=== PATIENT | male | born 1975 | race Two or more races ===

== ENCOUNTER 2021-03-31 04:43 | Emergency (ER) | payer SELFPAY ==
[~2021-03-31] VITALS: Ht 180.3 cm; Wt 145.5 kg
--- NOTE | 2021-03-31 05:27 | PHYS DOC ---
Past Medical History Past Medical History: Diabetes-Type II, GERD, Hypertension, Other Additional Past Medical Histor: ACID REFLUX, USES CPAP AT HOME (ARYAN REAGAN DO) Past Surgical History: Other Additional Past Surgical Histo: TWISTED TESTICLE CHILD, AND KELOID REMOVED (ARYAN REAGAN DO) Smoking Status: Never Smoker Alcohol Use: Occasionally (ARYAN REAGAN DO) General Adult EDM: Chief Complaint: ABDOMINAL PAIN HPI: HPI: Patient is a 45 year old male with history of GERD and hypertension presents with the chief complaint of epigastric discomfort. Onset of discomfort on wednesday. Pain is epigastric with radiation to back. Patient has associated diarrhea and nausea. Aggravating factors include alcohol and spicy foods. Patient with previous similar symptoms. Was Rx sulcrafate but ran out approximately 1 month ago. (ARYAN REAGAN DO) Review of Systems: Review of Systems: Review of systems: Constitutional symptoms- No fever, no chills. Eyes- No Discharge, No Visual Loss Respiratory symptoms- No shortness of breath, No wheezing, No Dyspnea on Exertion Cardiovascular Systems; No chest pain, No Palpitations, No syncope Gastrointestinal symptoms: Positive abdominal pain, Positive nausea, no vomiting Positive diarrhea. Genitourinary symptoms: No dysuria. Musculoskeletal symptoms: No back pain No extremity pain. NEUROLOGICAL Symptoms: No headache, no generalized weakness; No focal Weakness (ARYAN REAGAN DO) Heart Score: C/O Chest Pain: Yes HEART Score for Chest Pain: HEART Score for Chest Pain Response (Comments) Value History Slighlty/Non-Suspicious 0 ECG Normal 0 Age >45 - < 65 1 Total 1 Risk Factors: Risk Factors: DM, Current or recent (<one month) smoker, HTN, HLP, family history of CAD, obesity. Risk Scores: Score 0 - 3: 2.5% MACE over next 6 weeks - Discharge Home Score 4 - 6: 20.3% MACE over next 6 weeks - Admit for Clinical Observation Score 7 - 10: 72.7% MACE over next 6 weeks - Early Invasive Strategies (ARYAN REAGAN DO) Allergies: Allergies: Allergies Coded Allergies Type Severity Reaction Last Updated Verified No Known Drug Allergies 03/31/21 No (ARYAN REAGAN DO) Physical Exam: PE: Constitutional: Well developed, well nourished, no acute distress, non-toxic appearance. [] HENT: Normocephalic, atraumatic, bilateral external ears normal, oropharynx moist, no oral exudates, nose normal. [] Eyes: PERRLA, EOMI, conjunctiva normal, no discharge. [] Neck: Normal range of motion, no tenderness, supple, no stridor. [] Cardiovascular:Heart rate regular rhythm, no murmur [] Lungs & Thorax: Bilateral breath sounds clear to auscultation [] Abdomen: Bowel sounds normal, soft, no tenderness, no masses, no pulsatile masses. [] Skin: Warm, dry, no erythema, no rash. [] Back: No tenderness, no CVA tenderness. [] Extremities: No tenderness, no cyanosis, no clubbing, ROM intact, no edema. [] Neurologic: Alert and oriented X 3, normal motor function, normal sensory function, no focal deficits noted. [] Psychologic: Affect normal, judgement normal, mood normal. [] (ARYAN REAGAN DO) Current Patient Data: Vital Signs: Vital Signs Date Time Temp Pulse Resp B/P (MAP) Pulse Ox O2 Delivery O2 Flow Rate FiO2 03/31/21 04:45 98.1 94 16 125/60 (81) 94 Room Air 98.1 (ARYAN REAGAN DO) EKG: EKG: [] EKG performed at 523 heart rate [address] elevation no ST depression no acute OR (ARYAN REAGAN DO) Radiology/Procedures: Radiology/Procedures: [] Impression: XR CHEST 1V Clinical History: Reason: epigastric discomfort / Spl. Instructions: / History: Technique: AP view of the chest was obtained at 03/31/2021 5:31 AM. Comparison: None. Findings: The heart is normal size. The pulmonary vessels appear normal. There is mild linear opacities in the lower lungs. The pleural margins are clear. Impression: Mild bilateral infiltrates likely discoid atelectasis. (ARYAN REAGAN DO) Radiology/Procedures: IMAGING REPORT Signed PATIENT: DERIK MAYES ACCOUNT: [id number] : 1975 LOCATION: ER AGE: 45 SEX: M EXAM STATUS: PRE ER ORD. PHYSICIAN: ARYAN REAGAN DO REASON: abd pain elevated lipase, OMNI 300, 75 ML IV PROCEDURE: CT ABD PELV W/ IV CONTRST ONLY CT OF THE ABDOMEN AND PELVIS WITH IV CONTRAST. History: Reason: abd pain elevated lipase Comparison:None. Procedure: Contiguous axial images of the abdomen and pelvis were performed after the administration of 75 cc of Omni 300 IV contrast. Oral contrast: No. Findings: A few patchy opacities in the lung bases are likely discoid atelectasis. The gallbladder appears normal. The appendix is normal. There is fat-containing inguinal canal hernias. Liver: Unremarkable Spleen: Unremarkable Pancreas: Homogeneous however there is mild hazy opacity inferior to the head of the pancreas. Adrenal Glands: Unremarkable Kidneys: There is a tiny nonobstructive stone in each renal pelvis. There is a 5 mm stone at left UPJ without significant hydronephrosis. There is no mass or lymphadenopathy. There is no free air. There is no free fluid. The urinary bladder is mostly collapsed and not well evaluated. Impression: 1. Mild mesenteric inflammation just inferior to the head of the pancreas is likely secondary to pancreatitis. 2. Small stone left UPJ without significant hydronephrosis. Clinical correlation is suggested. End Impression PQRS Compliance Statement: One or more of the following individualized dose reduction techniques were utilized for this examination: 1. Automated exposure control 2. Adjustment of the mA and/or kV according to patient size 3. Use of iterative reconstruction technique Electronically signed by: Cynthia Tse III, MD (03/31/2021 6:17 AM) [facility] DICTATED and SIGNED BY: CYNTHIA TSE III, MD DATE: 03/31/21 [id number] Impression: CT Severity Index score 1 (mild) < 3 via ransom criteria (possibly score of 1 -no LDH drawn) BISAP 0 (EVERETT VILLANUEVA DO) Course & Med Decision Making: Course & Med Decision Making Pertinent Labs and Imaging studies reviewed. (See chart for details) [] (ARYAN REAGAN DO) Course & Med Decision Making Concern for mild, acute pancreatitis for the past 2 days. Patient reports he normally drinks tanvi daily, last drink was 2 days ago, reports 24 ounce beer. No prior history of pancreatitis. Reports PCP appointment in the past year with normal cholesterol. No history of biliary disease/gallstones. Patient reports pain is well tolerated with Advil that he took prior to ED arrival. Patient states he recently moved here from [place] and has no pcp. Is requesting discharge home. Dates pain is well tolerated and is tolerating oral intake. No active nausea or vomiting. Patient in no acute distress, hemodynamically stable, afebrile with no signs of sepsis. Will discharge home with strict ED return precautions were given for worse abdominal pain, dehydration, intractable nausea or vomiting, fever, confusion or difficulties breathing. Encouraged urgent outpatient follow-up with PMD in 24 to 48 hours for reevaluation. Life- threatening processes were considered but are low suspicion at this time, given history, physical exam and ED workup. Pt was educated on all prescription medications and adverse effects. All patient's questions were answered and pt was stable at time of discharge. Life/limb-threatening differential includes but is not limited to, Silverio's a ngina, infection (periodontal or peritonsillar abscess, retropharyngeal abscess, Vincents angina, ANUG, pharyngeal/bus monitor/buccal space infection), trauma or fracture, dental fracture/subluxation/avulsion, dental bleeding or hemorrhage/DIC, pulpitis, alveolar osteitis or neoplasm. I spoken with the patient and her caregivers. I explained the patient's condition, diagnoses and treatment plan based on the information available to me at this time. I have answered the patient and her caregiver's questions and addressed any concerns. The patient and her caregivers have a good understanding of patient's diagnosis, condition and treatment plan as can be expected at this point. Vital signs have been stable. Patient's condition is stable and appropriate for discharge from the emergency department. Patient will pursue further outpatient evaluation with primary care physician or other designated or consulting physician as outlined in the discharge instructions. The patient and/or caregivers are agreeable to this plan of care and follow-up instructions have been explained in detail. The patient and/or caregivers have received these instructions in written form and have expressed an understanding of the discharge instructions. The patient and/or caregivers are aware that any significant change of condition or worsening of symptoms should prompt immediate return to this or the closest emergency department or call to 911. (EVERETT VILLANUEVA DO) [place] Disclaimer: [place] Disclaimer: This electronic medical record was generated, in whole or in part, using a voice recognition dictation system. (ARYAN REAGAN DO) Departure Departure Impression: Primary Impression: Pancreatitis Additional Impression: Abdominal pain Disposition: HOME / SELF CARE / HOMELESS Condition: STABLE Referrals: ADRIAN DOOLEY MD Patient Instructions: Abdominal Migraine, Acute Pancreatitis, Diet for Gastroesophageal Reflux Disease, Child, [id number] Additional Instructions: Please abstain from any alcohol Follow-up with your primary care physician in 24 to 48 hours or follow-up with FOLLOW UP WITH FAMILY MEDICINE: [address], [address] [place] [address] EMERGENCY DEPARTMENT GENERAL DISCHARGE INSTRUCTIONS Thank you for coming to [facility] Emergency Department (ED) today and trusting us with you care. We trust that you had a positive experience in our Emergency Department. If you wish to speak to the department management, you may call the Director at [phone]. YOUR FOLLOW UP INSTRUCTIONS ARE FOLLOWS: 1. Do you have a private Doctor? If you do not have a private doctor, please ask for a resource list of physicians or clinics that may be able to assist you with follow up care. 2. The Emergency Physicain has interpreted your x-rays. The X-Ray specialist will also review them. If there is a change in the findings, you will be notified in 48 hours when at all possible. 3. A lab test or culture has been done, your results will be reviewed and you will be notified if you need a change in treatment. ADDITIONAL INSTRUCTIONS AND INFORMATION: 1. Your care today has been supervised by a physician who is specially trained in emergency care. Many problems require more than one evaluation for a complete diagnosis and treatment. We recommend that you schedule your follow up appointment as recommended to ensure complete treatment of you illness or injury. If you are unable to obtain follow up care and continue to have a problem, or if your condition worsens, we recommend that you return to the ED. 2. We are not able to safely determine your condition over the phone nor are we able to give sound medical advice over the phone. For these safety reasons, if you call for medical advice we will ask you to come to the ED for further evaluation. 3. If you have any questions regarding these discharge instructions please call the ED at [phone]. SAFETY INFORMATION: In the interest of safety, wellness, and injury prevention; we encourage you to wear your sealbelt, if you smoke; quite smoking, and we encourage family to use a protective helmet for bicycling and other sporting events that present an increased risk for head injury. IF YOUR SYMPTOMS WORSEN OR NEW SYMPTOMS DEVELOP, OR YOU HAVE CONCERNS ABOUT YOUR CONDITION; OR IF YOUR CONDITION WORSENS WHILE YOU ARE WAITING FOR YOUR FOLLOW UP APPOINTMENT; EITHER CONTACT YOUR PRIMARY CARE DOCTOR, THE PHYSICIAN WHOSE NAME AND NUMBER YOU WERE GIVEN, OR RETURN TO THE ED IMMEDIATELY. Scripts Pantoprazole Sodium (PROTONIX) 20 Mg Tablet. 1 TAB PO DAILY, #30 TAB 3 Refills Prov: ARYAN REAGAN I DO 03/31/21 Ondansetron Hcl (ZOFRAN) 4 Mg Tablet 1 TAB PO Q6HRS, #20 TAB Prov: ARYAN REAGAN I DO 03/31/21 Sucralfate (SUCRALFATE) 1 Gm Tablet 1 TAB PO TID, #90 TAB 11 Refills Prov: ARYAN REAGAN I DO 03/31/21 ARYAN REAGAN I DO March 31, 2021 05:27 [facility] March 31, 2021 06:53
[2021-03-31 05:29] LABS: BASO # 0.1 x10^3/uL (0.0-0.2); BASO % 1 % (0-3); EOS # 0.6 x10^3/uL (0.0-0.7); EOS % 6 % (0-3); HEMATOCRIT 42.3 % (39.0-53.0); HEMOGLOBIN 14.2 g/dL (13.0-17.5); LYMPH # 1.3 x10^3/uL (1.0-4.8); LYMPH % 13 % (24-48); MEAN CORPUSCULAR HEMOGLOBIN 31 pg (25-35); MEAN CORPUSCULAR HGB CONC 34 g/dL (31-37); MEAN CORPUSCULAR VOLUME 91 fL (79-100); MONO # 0.9 x10^3/uL (0.0-1.1); MONO % 10 % (0-9); NEUT # 7.1 x10^3/uL (1.8-7.7); NEUT % 71 % (31-73); PLATELET COUNT 178 x10^3/uL (140-400); RED BLOOD COUNT 4.63 x10^6/uL (4.30-5.70); RED CELL DISTRIBUTION WIDTH 13.8 % (11.5-14.5)
[2021-03-31 05:40] LABS: CALCIUM 9.7 mg/dL (8.5-10.1); CREATININE 1.1 mg/dL (0.7-1.3); GFR 72.4; POTASSIUM 3.6 mmol/L (3.5-5.1)
[2021-03-31 05:45] LABS: ALBUMIN 3.8 g/dL (3.4-5.0); ALBUMIN/GLOBULIN RATIO 1.1 (1.0-1.7); TOTAL BILIRUBIN 0.6 mg/dL (0.2-1.0); TOTAL PROTEIN 7.4 g/dL (6.4-8.2)
--- NOTE | 2021-03-31 05:45 | EKG ---
[facility] [address] [place] [address] Test Date: 2021-03-31 Test Time: 05:23:34 Pat Name: DERIK MAYES Department: Room: Gender: M Tester Regulator: : 1975 Requested By: ARYAN REAGAN Order Number: [id number] Reading MD: Measurements Intervals Imperial Rate: 89 P: 30 [place]: 142 QRS: -21 QRSD: 100 T: 13 QT: 346 QTc: 422 Interpretive Statements SINUS RHYTHM LEFTWARD AXIS QRS(T) CONTOUR ABNORMALITY CONSIDER ANTEROSEPTAL MYOCARDIAL DAMAGE POSSIBLY ABNORMAL ECG RI6.01 No previous ECG available for comparison
--- NOTE | 2021-03-31 05:45 | RAD ---
XR CHEST 1V Clinical History: Reason: epigastric discomfort / Spl. Instructions: / History: Technique: AP view of the chest was obtained at 03/31/2021 5:31 AM. Comparison: None. Findings: The heart is normal size. The pulmonary vessels appear normal. There is mild linear opacities in the lower lungs. The pleural margins are clear. Impression: Mild bilateral infiltrates likely discoid atelectasis. Electronically signed by: Albert Samuel III, MD (03/31/2021 5:43 AM) [facility]
[2021-03-31] MEDS ORDERED: PANT20TA2 PO (05:57)
[2021-03-31] MEDS ORDERED: ONDA4TAB7 PO (05:57)
[2021-03-31] MEDS ORDERED: SUCR1TAB PO (05:57)
[2021-03-31] MEDS ORDERED: LIDO:MAALOX 1:1 20 ML SINGLE DOSE. SWSW ONE (06:00)
[2021-03-31] MEDS ORDERED: CONTRAST GIVEN. MC PRN (06:00)
--- NOTE | 2021-03-31 06:19 | RAD ---
CT OF THE ABDOMEN AND PELVIS WITH IV CONTRAST. History: Reason: abd pain elevated lipase Comparison:None. Procedure: Contiguous axial images of the abdomen and pelvis were performed after the administration of 75 cc o f Omni 300 IV contrast. Oral contrast: No. Findings: A few patchy opacities in the lung bases are likely discoid atelectasis. The gallbladder ap pears normal. The appendix is normal. There is fat-containing inguinal canal hernias. Liver: Unremarkable Spleen: Unremarkable Pancreas: Homogeneous however there is mild hazy opacity inferior to the head of the pancreas. Adrenal Glands: Unremarkable Kidneys: There is a tiny nonobstructive stone in each renal pelvis. There is a 5 mm stone at left UPJ without significant hydronephrosis. There is no mass or lymphadenopathy. There is no free air. There is no free fluid. The urinary bladder is mostly collapsed and not well evaluated. Impression: 1. Mild mesenteric inflammation just inferior to the head of the pancreas is likely secondary to panc reatitis. 2. Small stone left UPJ without significant hydronephrosis. Clinical correlation is suggested. End Impression PQRS Compliance Statement: One or more of the following individualized dose reduction techniques were utilized for this examinat ion: 1. Automated exposure control 2. Adjustment of the mA and/or kV according to patient size 3. Use of iterative reconstruction technique Electronically signed by: Albert Samuel III, MD (03/31/2021 6:17 AM) [facility]
[2021-03-31] MEDS ORDERED: IOHEXOL 300 MG/ML 100ML VIAL. IV ONE (06:30)
[2021-03-31 07:27] VITALS: BP 126/71
[2021-03-31] MEDS ORDERED: KETOROLAC 15 MG/ML VIAL. ONE (07:33)
[2021-03-31] MEDS ORDERED: KETOROLAC 15 MG/ML VIAL. IVP ONE (07:45)
== END 2021-03-31 07:40 | disposition home or self-care (01) ==
LOC: ER 04:43
DX: K85.90 Acute pancreatitis without necrosis or infection, unspecified (principal); K21.9 Gastro-esophageal reflux disease without esophagitis; I10 Essential (primary) hypertension; E11.9 Type 2 diabetes mellitus without complications
CPT/HCPCS: 36415; 71045; 74177; 80053; 83690; 84484; 85025; 93005; 96374; 99285; J1885; Q9967

== ENCOUNTER 2021-04-28 03:30 | Emergency (ER) | payer SELFPAY ==
[~2021-04-28] VITALS: Ht 180.3 cm; Wt 147.5 kg
[~2021-04-28 03:30] MED LIST: LISI1TAB20 PO; ONDA4TAB7 PO; PANT20TA2 PO; SUCR1TAB PO; TAMS0.4C97 PO
[2021-04-28 04:28] LABS: BILIRUBIN,URINE NEGATIVE (NEG); CLARITY,URINE CLOUDY; COLOR,URINE YELLOW; NITRITE,URINE NEGATIVE (NEG); PH,URINE 5.5 (<5.0-8.0); PROTEIN,URINE NEGATIVE (NEG-TRACE)
[2021-04-28 04:38] LABS: BACTERIA,URINE 0 /HPF (0-FEW); RBC,URINE >40 /HPF (0-2); WBC,URINE OCC /HPF (0-4)
[2021-04-28 04:44] LABS: BASO # 0.1 x10^3/uL (0.0-0.2); BASO % 1 % (0-3); EOS # 0.2 x10^3/uL (0.0-0.7); EOS % 3 % (0-3); HEMATOCRIT 41.7 % (39.0-53.0); HEMOGLOBIN 13.9 g/dL (13.0-17.5); LYMPH # 1.2 x10^3/uL (1.0-4.8); LYMPH % 17 % (24-48); MEAN CORPUSCULAR HEMOGLOBIN 31 pg (25-35); MEAN CORPUSCULAR HGB CONC 33 g/dL (31-37); MEAN CORPUSCULAR VOLUME 92 fL (79-100); MONO # 0.8 x10^3/uL (0.0-1.1); MONO % 11 % (0-9); NEUT # 5.1 x10^3/uL (1.8-7.7); NEUT % 69 % (31-73); PLATELET COUNT 152 x10^3/uL (140-400); RED BLOOD COUNT 4.53 x10^6/uL (4.30-5.70); WHITE BLOOD COUNT 7.4 x10^3/uL (4.0-11.0)
[2021-04-28 04:52] LABS: CALCIUM 8.6 mg/dL (8.5-10.1); CREATININE 1.4 mg/dL (0.7-1.3); GFR 54.6; POTASSIUM 3.6 mmol/L (3.5-5.1)
[2021-04-28 04:58] LABS: ALBUMIN 3.6 g/dL (3.4-5.0); TOTAL BILIRUBIN 0.2 mg/dL (0.2-1.0); TOTAL PROTEIN 7.1 g/dL (6.4-8.2)
[2021-04-28] MEDS ORDERED: KETOROLAC 30 MG/ML VIAL. IVP ONE (05:00)
[2021-04-28] MEDS ORDERED: IV NORMAL SALINE 1000ML BAG 1,000 ML IV ONE (05:00)
--- NOTE | 2021-04-28 05:15 | PHYS DOC ---
Past Medical History Past Medical History: Diabetes-Type II, GERD, Hypertension, Other Additional Past Medical Histor: ACID REFLUX, USES CPAP AT HOME,PANCREATITIS, KIDNEY STONES (ARYAN GAMING DO) Past Surgical History: Other Additional Past Surgical Histo: TWISTED TESTICLE CHILD, AND KELOID REMOVED (ARYAN GAMING DO) Smoking Status: Former Smoker Alcohol Use: Occasionally (ARYAN GAMING DO) General Adult EDM: Chief Complaint: FLANK PAIN HPI: HPI: Patient is a 46 year old male with a past medical history of hypertension, peptic ulcers, and kidneys on presents with a chief complaint of left flank pain. Patient states left flank pain started yesterday progressively worse since onset. Patient had associated urinary urgency and decreased amount of urination as well as nausea without vomiting. Patient states yesterday's passed a small stone. This a.m. pain intensified resulting in patient presenting to the ER for evaluation. (ARYAN GAMING DO) Review of Systems: Review of Systems: Review of systems: Constitutional symptoms- No fever, no chills. Eyes- No Discharge, No Visual Loss Respiratory symptoms- No shortness of breath, No wheezing, No Dyspnea on Exertion Cardiovascular Systems; No chest pain, No Palpitations, No syncope Gastrointestinal symptoms: NO abdominal pain, no nausea, no vomiting or diarrhea. Genitourinary symptoms: No dysuria. Positive urinary urgency positive flank pain Musculoskeletal symptoms: No back pain No extremity pain. NEUROLOGICAL Symptoms: No headache, no generalized weakness; No focal Weakness Skin: No rash. (ARYAN GAMING DO) Heart Score: C/O Chest Pain: N/A Risk Factors: Risk Factors: DM, Current or recent (<one month) smoker, HTN, HLP, family history of CAD, obesity. Risk Scores: Score 0 - 3: 2.5% MACE over next 6 weeks - Discharge Home Score 4 - 6: 20.3% MACE over next 6 weeks - Admit for Clinical Observation Score 7 - 10: 72.7% MACE over next 6 weeks - Early Invasive Strategies (ARYAN GAMING DO) Current Medications: Current Medications Medications (Trade) Dose Ordered Sig/Mario Start Time Stop Time Status Last Admin Dose Admin Ketorolac Tromethamine (Toradol 30mg Vial) 30 mg 1X ONCE 04/28/21 05:00 04/28/21 05:01 DC 04/28/21 04:50 30 MG Sodium Chloride 1,000 ml @ 1,000 mls/hr 1X ONCE 04/28/21 05:00 04/28/21 05:59 04/28/21 04:51 1,000 MLS/HR (ARYAN GAMING DO) Allergies: Allergies: Allergies Coded Allergies Type Severity Reaction Last Updated Verified No Known Drug Allergies 03/31/21 No (ARYAN GAMING DO) Physical Exam: PE: General: alert, no acute distress. Skin: warm, dry and intact. HENT: bilateral external ears normal, oropharynx moist, nose normal. Head:: Normocephalic, atraumatic. Neck: Trachea midline. Eyes: EOMI, Normal conjunctiva, No drainage CARDIOVASCULAR: Regular rate and rhythm RESPIRATORY: No respiratory distress Back: Full range of motion. Skin: Warm, dry, no erythema, no rash. MUSCULOSKELETAL: Full range of motion of bilateral upper and lower extremities. GASTROINTESTINAL: Abdomen soft without rebound or guarding. NEUROLOGICAL: Alert and noted to person, place and time. No neurological deficits observed Psychiatric: Cooperative. Normal judgment (ARYAN GAMING DO) Current Patient Data: Labs: Laboratory Tests Test 04/28/21 04:10 04/28/21 04:30 Urine Collection Type Unknown Urine Color Yellow Urine Clarity Cloudy Urine pH 5.5 (<5.0-8.0) Urine Specific [place] >=1.030 (1.000-1.030) Urine Protein Negative mg/dL (NEG-TRACE) Urine Glucose (UA) 100 mg/dL (NEG) Urine Ketones (Stick) Negative mg/dL (NEG) Urine Blood Large (NEG) Urine Nitrite Negative (NEG) Urine Bilirubin Negative (NEG) Urine Urobilinogen Dipstick 1.0 mg/dL (0.2 mg/dL) Urine Leukocyte Esterase Negative (NEG) Urine RBC >40 /HPF (0-2) Urine WBC Occ /HPF (0-4) Urine Squamous Epithelial Cells Few /LPF Urine Bacteria 0 /HPF (0-FEW) Urine Mucus Marked /LPF White Blood Count 7.4 x10^3/uL (4.0-11.0) Red Blood Count 4.53 x10^6/uL (4.30-5.70) Hemoglobin 13.9 g/dL (13.0-17.5) Hematocrit 41.7 % (39.0-53.0) Mean Corpuscular Volume 92 fL (79-100) Mean Corpuscular Hemoglobin 31 pg (25-35) Mean Corpuscular Hemoglobin Concent 33 g/dL (31-37) Red Cell Distribution Width 14.0 % (11.5-14.5) Platelet Count 152 x10^3/uL (140-400) Neutrophils (%) (Auto) 69 % (31-73) Lymphocytes (%) (Auto) 17 % (24-48) L Monocytes (%) (Auto) 11 % (0-9) H Eosinophils (%) (Auto) 3 % (0-3) Basophils (%) (Auto) 1 % (0-3) Neutrophils # (Auto) 5.1 x10^3/uL (1.8-7.7) Lymphocytes # (Auto) 1.2 x10^3/uL (1.0-4.8) Monocytes # (Auto) 0.8 x10^3/uL (0.0-1.1) Eosinophils # (Auto) 0.2 x10^3/uL (0.0-0.7) Basophils # (Auto) 0.1 x10^3/uL (0.0-0.2) Sodium Level 143 mmol/L (136-145) Potassium Level 3.6 mmol/L (3.5-5.1) Chloride Level 107 mmol/L (98-107) Carbon Dioxide Level 26 mmol/L (21-32) Anion Gap 10 (6-14) Blood Urea Nitrogen 12 mg/dL (8-26) Creatinine 1.4 mg/dL (0.7-1.3) H Estimated GFR (Cockcroft-Gault) 54.6 BUN/Creatinine Ratio 9 (6-20) Glucose Level 152 mg/dL (70-99) H Calcium Level 8.6 mg/dL (8.5-10.1) Total Bilirubin 0.2 mg/dL (0.2-1.0) Aspartate Amino Transferase (AST) 14 U/L (15-37) L Alanine Aminotransferase (ALT) 24 U/L (16-63) Alkaline Phosphatase 55 U/L (46-116) Total Protein 7.1 g/dL (6.4-8.2) Albumin 3.6 g/dL (3.4-5.0) Albumin/Globulin Ratio 1.0 (1.0-1.7) Laboratory Tests 04/28/21 04:30 Laboratory Tests 04/28/21 04:30 Vital Signs: Vital Signs Date Time Temp Pulse Resp B/P (MAP) Pulse Ox O2 Delivery O2 Flow Rate FiO2 04/28/21 04:24 97.8 107 20 177/102 (127) 96 Room Air 97.8 (ARYAN GAMING DO) EKG: EKG: [] (ARYAN GAMING DO) Radiology/Procedures: Radiology/Procedures: [] (ARYAN GAMING DO) Course & Med Decision Making: Course & Med Decision Making Pertinent Labs and Imaging studies reviewed. (See chart for details) []Patients Care and treatment plan provided by ER Nurse Practitioner. I was available for consult. Patient's chart reviewed. (ARYAN GAMING DO) Course & Med Decision Making Assumed care of patient at check out from Dr. Gaming. At check out, CT abdomen pelvis was pending and patient is stable. At this time, CT shows bilateral kidney stones. I have discussed the case with the urologist at Dr. Albert Cedeño. He is willing to accept the patient. Patient will go by private vehicle to [facility] for removal of kidney stones. At this time patient's pain is controlled and he is stable. (MYA SOFIA MD) Dragon Disclaimer: [place] Disclaimer: This electronic medical record was generated, in whole or in part, using a voice recognition dictation system. (ARYAN GAMING DO) Departure Departure Impression: Primary Impression: Kidney stone Disposition: 02 SHORT TERM HOSPITAL Condition: STABLE Referrals: NO PCP (PCP) Patient Instructions: Kidney Stones Additional Instructions: [facility] [phone] Scripts Tamsulosin Hcl (FLOMAX) 0.4 Mg Cap.er.24h 1 CAP PO DAILY, #20 CAP 11 Refills Prov: ARYAN GAMING DO 04/28/21 Hydrocodone/Acetaminophen (Hydrocodone-Acetamin 5-325 mg) 1 Each Tablet 1 EACH PO Q4-6HRS, #14 TAB Prov: ARYAN GAMING DO 04/28/21 ARYAN GAMING DO Apr 28, 2021 05:15 MYA SOFIA MD Apr 28, 2021 08:04
[2021-04-28] MEDS ORDERED: HYDR-2759 PO (05:27)
[2021-04-28] MEDS ORDERED: TAMS0.4C97 PO (05:27)
--- NOTE | 2021-04-28 07:02 | RAD ---
EXAMINATION: CT ABDOMEN+PELVIS WO CLINICAL HISTORY: Flank pain left hx kidney stones TECHNIQUE: Non-IV contrast imaging of the abdomen and pelvis was performed using standard technique, scanning from just above the dome of the diaphragm to the symphysis pubis. Unenhanced imaging is wiggins ited for the evaluation of some intra-abdominal and pelvic pathology. CT Dose Reduction Employed: One or more of the following individualized dose reduction techniques wer e utilized for this examination: 1. Automated exposure control 2. Adjustment of the mA and/or kV ac cording to patient size 3. Use of iterative reconstruction technique. COMPARISON: 04/04/2021 FINDINGS: Minimal subsegmental atelectasis in the lower lungs. Contracted gallbladder suboptimally evaluated. Liver, pancreas, spleen, and adrenal glands unremarkab le. Calculi in the bilateral distal ureters just proximal to the ureterovesical junctions measuring up to 7 mm on the left and 6 mm on the right. Mild left hydroureteronephrosis. Minimal right hydroureteron ephrosis. Additional nonobstructive bilateral renal calculi. Decompressed urinary bladder suboptimally evaluated. Nonenlarged prostate. No dilated bowel. Colonic diverticulosis without evidence of acute diverticulitis. Normal appendix. No abdominal aortic or iliac artery aneurysm. Multilevel thoracolumbar degenerative changes. IMPRESSION: Calculi in the bilateral distal ureters with hydroureteronephrosis as described. Electronically signed by: Ishmael Chowdary DO (04/28/2021 7:00 AM) [facility]
[2021-04-28 08:14] VITALS: BP 144/80
== END 2021-04-28 08:31 | disposition short-term general hospital (02) ==
LOC: ER 03:30
DX: R10.32 Left lower quadrant pain (principal); Z20.822 Contact with and (suspected) exposure to COVID-19; R39.15 Urgency of urination; N20.0 Calculus of kidney; E11.9 Type 2 diabetes mellitus without complications; K21.9 Gastro-esophageal reflux disease without esophagitis; I10 Essential (primary) hypertension; Z87.891 Personal history of nicotine dependence
CPT/HCPCS: 36415; 74176; 80053; 81001; 85025; 87426; 96361; 96374; 99285; J1885; J7030; U0003